=== PATIENT | female | born 1995 | race Caucasian/White ===

== ENCOUNTER 2019-10-04 22:57 | Emergency (ER) | payer OTHER ==
[~2019-10-04] VITALS: Ht 157.5 cm; Wt 43.2 kg
[2019-10-04 23:20] VITALS: BP 114/74; Ht 157.5 cm; Wt 43.2 kg
[2019-10-04 23:55] LABS: WHITE CELLS - URINE 0-5 /hpf (NEGATIVE)
[2019-10-04 23:56] LABS: AMORPHOUS SEDIMENT <1+ /lpf (NONE SEEN); BACTERIA FEW /hpf (NEGATIVE); EPITHELIAL CELLS 0-5 /hpf (0-5)
[2019-10-05 00:11] LABS: HCG URINE NEGATIVE (NEGATIVE)
[2019-10-05] MEDS ORDERED: MACROBID100 MG PO (00:53)
== END 2019-10-05 01:04 | disposition home or self-care (01) ==
LOC: D.ER 22:57
PROVIDERS: Emergency Medicine
DX: N30.90 Cystitis, unspecified without hematuria (principal); R35.0 Frequency of micturition; R30.9 Painful micturition, unspecified